=== PATIENT | female | born 1950 | race Caucasian/White ===

== ENCOUNTER 2020-06-10 10:36 | Emergency (ER) | payer MEDICARE, OTHER ==
[2020-06-10 11:20] VITALS: BP 96/54; PULSE 73
[2020-06-10] MEDS ORDERED: Lactated Ringers 1,000 ML IV ONE (11:33)
[2020-06-10] MEDS ORDERED: Ondansetron 4 MG/2 ML SDV IVPUSH ONE (11:34)
--- NOTE | 2020-06-10 12:00 | EDM.PDOC ---
<Ron Herrera - Last Filed: 06/10/20 12:16> ED HPI GENERAL MEDICAL PROBLEM - General Chief Complaint: Gastrointestinal Problem Stated Complaint: VOMMITING DIARREHA HEADACHE Time Seen by Provider: 06/10/20 11:40 - Related Data Allergies Allergy/AdvReac Type Severity Reaction Status Date / Time bacitracin Allergy Mild itch and Verified 06/10/20 10:48 [From Neosporin swelling ([id number])] neomycin Allergy Mild itch and Verified 06/10/20 10:48 [From Neosporin swelling ([id number]-[id number])] polymyxin B Allergy Mild itch and Verified 06/10/20 10:48 [From Neosporin swelling ([id number])] latex Allergy Itching Verified 09/16/16 09:03 CATS Allergy Unknown SNEEZINAG/C Uncoded 10/07/14 09:12 ONGESTION tape adhesive Allergy BLISTERING/SKIN Uncoded 09/16/16 09:03 ERUPTIONS Home Meds: Home Meds Azelastine [Astelin Nasal Soln] 1 spray NASBOTH BID 06/10/20 [History] Ibandronate Sodium 150 mg PO Q30D 06/10/20 [History] Levothyroxine Sodium [Synthroid] 75 mcg PO DAILY 06/10/20 [History] Montelukast [Singulair] 10 mg PO BEDTIME 06/10/20 [History] Ondansetron [Zofran ODT] 4 mg PO Q6H PRN #20 tab 06/10/20 [Rx] Course - Re-Assessments/Exams Free Text/Narrative Re-Assessment/Exam: 06/10/20 12:16 I personally performed or re-performed the physical examination and medical decision making. I have verified all student documentation or findings, including history, physical exam and/or medical decision making. Departure - Departure Disposition: Home, Self-Care 01 Clinical Impression: Gastroenteritis - Discharge Information Prescriptions: Ondansetron [Zofran ODT] 4 mg PO Q6H PRN #20 tab PRN Reason: Nausea Instructions: Viral Gastroenteritis, Adult Forms: ED Department Discharge Care Plan Goals: Patient is advised to rest, hydrate. Use anti-nausea medication as needed. Return if symptoms worsen or fail to improve, or if you are unable to tolerate any oral intake. Signs of dehydration include rapid pulse, dry mucous membranes, dizziness/lightheadedness, headache, and fatigue. Follow up with your primary care provider regarding your chronically elevated alkaline phosphatase. Discharge teaching reviewed with staff. <Klaus Salcido - Last Filed: 06/10/20 12:54> ED HPI GENERAL MEDICAL PROBLEM - General Source of Information: Reports: Patient History Limitations: Reports: No Limitations - History of Present Illness INITIAL COMMENTS - FREE TEXT/NARRATIVE: 70 y/o female presents to the ED c/o vomiting and diarrhea. Onset was 0100 this AM. Onset was sudden. She was up all night with vomiting and diarrhea. Denies any blood in the stool or hematemesis. Stool is loose, watery. Currently feels thirsty, but as soon as she attempts any oral intake she vomits. Also c/o headache and chills. Denies any respiratory complaints. She does not have any abdominal pain. She has had some back pain this week but feels this is unrelated. Reports her grandchildren had the "stomach flu" a week or so ago, otherwise denies sick contacts. Did not eat anything out of the ordinary. No one else in the home has had similar symptoms. Onset: Today, Sudden Onset Date: 06/10/20 Onset Time: 01:00 Past Medical History HEENT History: Reports: Sinusitis Gastrointestinal History: Reports: Other (See Below) Other Gastrointestinal History: lab tests for Gallbladder are high, appointment in [place] in July to evaluated. Endocrine/Metabolic History: Reports: Hyperthyroidism, Osteoporosis Social & Family History - Tobacco Use Smoking Status *Q: Never Smoker Second Hand Smoke Exposure: No - Caffeine Use Caffeine Use: Reports: Coffee - Recreational Drug Use Recreational Drug Use: No ED ROS GENERAL - Review of Systems Review Of Systems: See Below Constitutional: Reports: Chills, Fatigue. Denies: Fever HEENT: Reports: No Symptoms Respiratory: Reports: No Symptoms Cardiovascular: Reports: No Symptoms Endocrine: Reports: Fatigue GI/Abdominal: Reports: Diarrhea, Nausea, Vomiting. Denies: Abdominal Pain, Bloody Stool, Hematemesis, Melena Musculoskeletal: Reports: Back Pain Skin: Reports: No Symptoms Neurological: Reports: Headache Hematologic/Lymphatic: Denies: Easy Bleeding, Easy Bruising Immunologic: Reports: Environmental Allergy ED EXAM, GI/ABD - Physical Exam Exam: See Below General Appearance: Alert, WD/WN, Mild Distress Eyes: Bilateral: Normal Appearance, EOMI Nose: Normal Inspection Throat/Mouth: Normal Inspection, Normal Lips, Normal Teeth, Normal Gums, Normal Oropharynx, Normal Voice, No Airway Compromise Head: Atraumatic, Normocephalic Neck: Normal Inspection, Supple, Non-Tender Respiratory/Chest: No Respiratory Distress, Lungs Clear, Normal Breath Sounds, No Accessory Muscle Use Cardiovascular: Normal Peripheral Pulses, Regular Rate, Rhythm, No Edema, No Gallop, No Murmur, No Rub GI/Abdominal Exam: Normal Bowel Sounds, Soft, Non-Tender, No Organomegaly, No Distention, No Mass Extremities: Normal Inspection, Normal Range of Motion, Non-Tender, No Pedal Edema, Normal Capillary Refill Neurological: Alert, Oriented, No Motor/Sensory Deficits Psychiatric: Normal Affect, Normal Mood Skin Exam: Warm, Dry, Intact Course - Vital Signs Last Recorded V/S: Last Vital Signs Temp 98.4 F 06/10/20 10:39 Pulse 73 06/10/20 10:39 Resp 16 06/10/20 10:39 BP 96/54 L 06/10/20 10:39 Pulse Ox 95 06/10/20 10:39 - Orders/Labs/Meds Orders: Active Orders 24 hr Category Date Time Status CORONAVIRUS COVID-19 PCR PHL Stat Lab 06/10/20 12:42 Ordered Labs: Laboratory Tests 06/10/20 06/10/20 Range/Units 11:48 11:48 WBC 10.3 H (5.0-10.0) 10^3/uL RBC 4.64 (4.2-5.4) 10^6/uL Hgb 12.9 (12.0-16.0) g/dL Hct 40.8 (37.0-47.0) % MCV 87.9 D (80-100) fL MCH 27.8 (27.0-34.0) pg MCHC 31.6 L (33.0-35.0) g/dL Plt Count 279 D (150-450) 10^3/uL Neut % (Auto) 75.3 H (42.2-75.2) % Lymph % (Auto) 18.8 L (20.5-50.1) % [place] % (Auto) 5.6 (2-8) % Eos % (Auto) 0.2 L (1.0-3.0) % Baso % (Auto) 0.1 (0.0-1.0) % Sodium 142 (136-145) mmol/L Potassium 4.9 (3.5-5.1) mmol/L Chloride 104 (98-107) mmol/L Carbon Dioxide 31 (21-32) mmol/L Anion Gap 11.9 (7-13) mEq/L BUN 16 (7-18) mg/dL Creatinine 0.64 (0.55-1.02) mg/dL Est Cr Clr Drug Dosing 66.54 mL/min Estimated GFR (MDRD) > 60 BUN/Creatinine Ratio 25.0 (No establ ref range) Glucose 95 (74-99) mg/dL Calcium 8.7 (8.5-10.1) mg/dL Total Bilirubin 0.5 (0.2-1.0) mg/dL AST 73 H (15-37) U/L ALT 68 H (14-59) U/L Alkaline Phosphatase 692 H (46-116) U/L Total Protein 7.8 (6.4-8.2) g/dL Albumin 2.9 L (3.4-5.0) g/dL Globulin 4.9 Albumin/Globulin Ratio 0.59 Meds: Medications Discontinued Medications Generic Name Dose Route Start Last Admin Trade Name Freq PRN Reason Stop Dose Admin Lactated Ringer's 1,000 mls @ 999 mls/hr 06/10/20 11:33 06/10/20 11:52 Ringers, Lactated IV 06/10/20 12:33 999 mls/hr .BOLUS ONE Administration Ondansetron HCl 4 mg 06/10/20 11:34 06/10/20 11:53 Zofran IVPUSH 06/10/20 11:35 4 mg ONETIME ONE Administration - Re-Assessments/Exams Free Text/Narrative Re-Assessment/Exam: 06/10/20 12:44 Patient evaluated on recheck. She feels good improvement of symptoms following fluids administration and Zofran. Patient reports concerns regarding indirect COVID exposure. Her daughter has had direct contact with known positive cases this past week. She would like COVID testing. Testing is indicated by presence of headache and chills per public health guidelines. Departure - Departure Time of Disposition: 12:50 Condition: Good, Fair - Discharge Information *PRESCRIPTION DRUG MONITORING PROGRAM REVIEWED*: Not Applicable *COPY OF PRESCRIPTION DRUG MONITORING REPORT IN PATIENT HEMANT: Not Applicable Sepsis Event Note (ED) - Evaluation Sepsis Screening Result: No Definite Risk - Focused Exam Vital Signs: Vital Signs Temp Pulse Resp BP Pulse Ox 06/10/20 10:39 98.4 F 73 16 96/54 L 95 - My Orders Last 24 Hours: My Active Orders 06/10/20 12:42 CORONAVIRUS COVID-19 PCR PHL Stat - Assessment/Plan Last 24 Hours: My Active Orders 06/10/20 12:42 CORONAVIRUS COVID-19 PCR PHL Stat Assessment:: Symptoms consistent with viral gastroenteritis. Very mild elevation in WBC with borderline neutrophil predominance. No significant electrolyte abnormalities. There is mild elevation in AST and ALT and a significant elevation in alk phos, however on review of past labs in [facility] chart reveal this has been chronic over the past year or more. Plan: Patient is prescribed Zofran ODT 4 mg q6h PRN. She is counseled on rest, hydration, and isolation until her symptoms are improved. COVID test was done prior to discharge. See care plan goals for further elaboration and instructions.
[2020-06-10 12:18] LABS: ANION GAP 11.9 mEq/L (7-13); CHLORIDE,CL 104 mmol/L (98-107); SODIUM,NA 142 mmol/L (136-145)
== END 2020-06-10 13:00 | disposition home or self-care (01) ==
LOC: DL.ED 10:36
DX: K52.9 Noninfective gastroenteritis and colitis, unspecified (principal); E05.90 Thyrotoxicosis, unspecified without thyrotoxic crisis or storm; Z88.1 Allergy status to other antibiotic agents; Z91.09 Other allergy status, other than to drugs and biological substances; Z91.040 Latex allergy status; Z20.828 Contact with and (suspected) exposure to other viral communicable diseases
CPT/HCPCS: 36415; 80053; 85025; 96361; 96374; 99284; J2405; J7120; U0002; 99283

== ENCOUNTER 2024-03-02 10:46 | Emergency (ER) | payer MEDICARE, OTHER, MEDICAID ==
[2024-03-02] MEDS: Iopamidol 755 Mg/ML 100 ML Bottle IVPUSH ONE (13:13)
[2024-03-02 14:42] VITALS: BP 129/108; PULSE 107
[2024-03-02 14:44] LABS: PROTHROMBIN TIME 10.3 SEC (9.0-12.0)
[2024-03-02 14:46] LABS: MONONUCLEOSIS SCREEN NEGATIVE
[2024-03-02 14:50] LABS: A/G RATIO 1.3; ALANINE AMINOTRANSFERASE,ALT 28 U/L (14-59); ALBUMIN 3.7 g/dL (3.4-5.0); ALKALINE PHOSPHATASE 134 U/L (46-116); ANION GAP 9.2 mEq/L (7-13); ASPARTATE AMNIOTRANSFERASE,AST 24 U/L (15-37); BASOPHILS PERCENT AUTO 0.6 % (0.0-1.0); BILIRUBIN TOTAL 0.4 mg/dL (0.2-1.0); BLOOD UREA NITROGEN,BUN 16 mg/dL (7-18); BUN/CREATININE RATIO 21.9 (No establ ref range); CALCIUM 9.1 mg/dL (8.5-10.1); CARBON DIOXIDE,CO2 33 mmol/L (21-32); CHLORIDE,CL 104 mmol/L (98-107); CREATININE 0.73 mg/dL (0.55-1.02); EOSINOPHILS PERCENT AUTO 2.5 % (1.0-3.0); GLUCOSE RANDOM 98 mg/dL (70-99); HEMATOCRIT 43.5 % (37.0-47.0); HEMOGLOBIN 13.3 g/dL (12.0-16.0); LYMPHOCYTES PERCENT AUTO 20.6 % (20.5-50.1); MEAN CORPUSCULAR HEMOGLOBIN 28.9 pg (27.0-34.0); MEAN CORPUSCULAR HGB CONC 30.6 g/dL (33.0-35.0); MEAN CORPUSCULAR VOLUME 94.4 fL (80-100); MONOCYTES PERCENT AUTO 7.2 % (2-8); NEUTROPHILS PERCENT AUTO 69.1 % (42.2-75.2); PLATELET COUNT,PLT 249 10^3/uL (150-450); POTASSIUM,K 4.2 mmol/L (3.5-5.1); PROTEIN TOTAL,TP 6.5 g/dL (6.4-8.2); RED BLOOD CELL COUNT 4.61 10^6/uL (4.2-5.4); SODIUM,NA 142 mmol/L (136-145); T4 FREE 1.06 ng/dL (0.76-1.46); TSH ULTRASENSITIVE 1.87 uIU/mL (0.36-3.74); WHITE BLOOD CELL COUNT,WBC 9.9 10^3/uL (5.0-10.0)
[2024-03-02 14:51] LABS: ESTIMATED GFR 88 mL/min (>=60)
== END 2024-03-02 15:07 | disposition home or self-care (01) ==
LOC: DL.ED 10:46
DX: R60.0 Localized edema (principal); E05.90 Thyrotoxicosis, unspecified without thyrotoxic crisis or storm; Z88.1 Allergy status to other antibiotic agents; Z91.048 Other nonmedicinal substance allergy status; Z79.890 Hormone replacement therapy; Z79.899 Other long term (current) drug therapy
CPT/HCPCS: 36415; 71275; 80053; 83735; 83880; 84439; 84443; 84484; 85025; 85610; 86308; 93970; 99285; Q9967